=== PATIENT | male | born 1985 ===

== ENCOUNTER → 2020-09-10 | Day surgery (SDC) | payer OTHER ==
[~2020-09-10] MED LIST: ALPRAZOLAM1 MG PO; BUSPIRONE HCL10 MG PO; DIOVAN PO; FENTANYL CITRATE/PF 100MCG/2 ML INJ ONE; HYOSCYAMINE 0.125 MG TAB ONE; KETAMINE HCL INJ 50 MG/ML 10 ML VIAL ONE; LIDOCAINE HCL 2% LOCAL INJ 5 ML SDV VIAL INJ ONE; MIDAZOLAM HCL 2 MG/2 ML VIAL ONE; PANTOPRAZOLE 40 MG 10ML VIAL ONE; PROPOFOL IV EMULSION 10 MG/ML 20 ML VIAL ONE
[2020-09-10 13:40] VITALS: BP 145/95
[2020-09-10 14:38] LABS: WBC,FECAL (FECAL LACTOFERRIN) NEGATIVE (NEGATIVE)
--- NOTE | 2020-09-10 15:01 | Operative Report ---
DATE OF PROCEDURE: 09/10/2020 SURGEON: Ramesh Roblero MD PROCEDURES: EGD with biopsies and colonoscopy with polypectomy and biopsies. INDICATIONS FOR EGD: Heartburn, indigestion. INDICATIONS FOR COLONOSCOPY: Diarrhea, chronic, anorectal pain. MEDICATIONS: The patient was done under MAC, please see anesthesiologist's note. PROCEDURE IN DETAIL: With the patient in the left lateral decubitus position, a flexible fiberoptic Olympus gastroscope was introduced into the esophagus under direct visualization without any difficulty. There was some patchy erythema noted in distal esophagus. The scope was then advanced with ease into the stomach and the patient is status post gastric sleeve. Mucosa overlying the antrum and the body revealed diffuse erythema and moderate edema, and biopsies were obtained and sent to stain for H. pylori. The pylorus was intubated with ease and the scope was advanced all the way to the second portion of the duodenum. Biopsies were obtained from the proximal second portion and duodenal bulb to rule out sprue. The scope was then withdrawn back into the stomach and retroflexed, and postoperative changes were noted. The scope was then straightened out, it was subsequently withdrawn, and the patient tolerated the procedure well. IMPRESSION: 1. Distal esophagitis. 2. Status post gastric sleeve. 3. Gastritis, biopsied, biopsies sent to stain for Helicobacter pylori. 4. Rule out sprue. PLAN: Follow up histology. Initiate Protonix 40 mg one p.o. q.a.m. before meals. The patient was then turned around and after adequate lubrication of the anal canal, a flexible fiberoptic Olympus colonoscope was inserted into the rectum with ease and advanced all the way to the cecum. Mucosa overlying the cecum appeared to be within normal limits. The ileocecal valve was intubated and the scope was advanced into the terminal ileum. Biopsies were obtained. The scope was then withdrawn back into the colon. It was then withdrawn slowly. A minute polyp was noted in the proximal ascending colon and that was cold biopsied. Mucosa overlying the ascending, transverse, descending, sigmoid, and rectum revealed some patchy and [id number] inflammatory changes and multiple random biopsies were obtained. A minute polyp was cold biopsied from the descending colon. The scope was then retroflexed into the distal rectum and small internal hemorrhoids were noted, none of which was actively bleeding. The scope was then straightened out and it was subsequently withdrawn. An anal fissure was noted on the way out and adequate amount of stool was secured and sent for the appropriate stool studies. The patient tolerated the procedure well. IMPRESSION: 1. Ascending colon polyp, minute, cold, biopsied. 2. Mild patchy colitis, random biopsies obtained. 3. Descending colon polyp, cold biopsied. 4. Proctitis, mild, biopsied. 5. Internal hemorrhoids, none actively bleeding. 6. Anal fissure. PLAN: Follow up histology. Follow up stool studies. Initiate Bentyl 20 mg one p.o. t.i.d. Colestid 1 g p.o. q.i.d. Check IBD panel, CRP, and sedimentation rate. The patient might benefit from a followup colonoscopy in 3 years. Ramesh Roblero MD [facility] [place] [facility] [place] /[id number]
[2020-09-11 14:31] LABS: C DIFFICILE TOXIN A&B AMP PROB NEGATIVE (NEGATIVE)
== END | disposition home or self-care (01) ==
LOC: OR 10:01
PROVIDERS: ATTEND Internal Medicine Gastroenterology
DX: K29.70 Gastritis, unspecified, without bleeding (principal); D12.2 Benign neoplasm of ascending colon; D12.4 Benign neoplasm of descending colon; K52.9 Noninfective gastroenteritis and colitis, unspecified; K20.90 Esophagitis, unspecified without bleeding; Z98.84 Bariatric surgery status; K60.2 Anal fissure, unspecified; K62.89 Other specified diseases of anus and rectum; K64.8 Other hemorrhoids; F31.9 Bipolar disorder, unspecified; J32.9 Chronic sinusitis, unspecified; I10 Essential (primary) hypertension; F17.210 Nicotine dependence, cigarettes, uncomplicated; Z01.810 Encounter for preprocedural cardiovascular examination; Z01.812 Encounter for preprocedural laboratory examination; Z11.59 Encounter for screening for other viral diseases; Z68.38 Body mass index [BMI] 38.0-38.9, adult
CPT/HCPCS: 36415; 43239; 45380; 83630; 83993; 85651; 86140; 86256; 86671; 87045; 87177; 87328; 87493; 93005; C9113; J2001; J2250; J2704; J3010; U0002